=== PATIENT | male | born 1950 | race Hispanic/Latino ===

== ENCOUNTER 2017-11-08 12:40 | Emergency (ER) | payer MEDICARE ==
[2017-11-08 13:18] LABS: Basophils % (Auto) 0.7 % (0.0-1.8); Eosinophils % (Auto) 2.5 % (0.0-4.3); Hematocrit 52.3 % (35.5-45.6); Hemoglobin 17.4 gm/dl (11.8-15.2); Mean Corpuscular HGB Conc 33 % (32-34); Mean Corpuscular Hemoglobin 31 pg (28-32); Mean Corpuscular Volume 93 fl (84-94); Platelet Count 228 K/mm3 (140-440); Red Cell Distribution Width 14.7 % (13.2-15.2); White Blood Count 10.6 K/mm3 (4.5-11.0)
[2017-11-08 13:35] LABS: Calcium 9.5 mg/dL (8.4-10.2); Chloride 104.2 mmol/L (98-107); Potassium 4.5 mmol/L (3.6-5.0)
[2017-11-08 14:20] LABS: Urine Drugs of Abuse Note Disclamer
[2017-11-08 14:29] LABS: Bilirubin,Urine NEG (Negative); Blood,Urine NEG (Negative); Ketones,Urine NEG (Negative); Leukocyte Esterase,Urine NEG (Negative); Mucus,Urine 2+ /HPF; Nitrite,Urine NEG (Negative); Protein,Urine <15 mg/dL mg/dL (Negative); Urobilinogen,Urine < 2.0 mg/dL (<2.0)
[2017-11-08] MEDS ORDERED: HALDOL IM PRN (14:33)
[2017-11-08] MEDS ORDERED: ATIVAN IM PRN (14:33)
--- NOTE | 2017-11-08 14:36 | Emergency Department Report ---
ED Psych HPI - General Chief Complaint: Psych Stated Complaint: SUICIDAL THOUGHTS Time Seen by Provider: 11/08/17 13:09 Source: patient Mode of arrival: Ambulatory Limitations: No Limitations - History of Present Illness Initial Comments: This is a 67-year-old male with a past medical history of hypertension. The patient presents to the ER with a complaint of suicidality and wanting to overdose. He reports that he has a plan to get a bunch of pills together and overdose. He reports that he is not attempted over dose as of yet. His symptoms are constant, they do not radiate anywhere, they do not have exacerbating or relieving factors. The patient denies headache, neck pain, chest pain, abdominal pain, shortness of breath, irritative and obstructive urinary symptoms, and hallucinations. MD Complaint: suicidal ideation, feels depressed -: Gradual Associated Psychiatric Symptoms: suicidal ideation History of same: Yes Quality: constant Improves With: none Worsens With: none Treatments Prior to Arrival: none If Self Harm: admits thoughts of, has plan - Related Data Home Medications Medication Instructions Recorded Confirmed Last Taken Doxepin [SINEquan] 10 mg PO QHS 11/08/17 11/08/17 Unknown FLUoxetine HCL [PROzac] 40 mg PO QDAY 11/08/17 11/08/17 Unknown Lansoprazole [Prevacid] 15 mg PO QDAY 11/08/17 11/08/17 Unknown Lisinopril [Zestril TAB] 40 mg PO QDAY 11/08/17 11/08/17 Unknown Multivitamin [Multiple Vitamins] 1 each PO QDAY 11/08/17 11/08/17 Unknown amLODIPine [Norvasc] 10 mg PO DAILY 11/08/17 11/08/17 Unknown busPIRone [Buspar] 5 mg PO TID 11/08/17 11/08/17 Unknown Allergies Allergy/AdvReac Type Severity Reaction Status Date / Time No Known Allergies Allergy Unverified 11/08/17 12:51 ED Review of Systems ROS: Stated complaint: SUICIDAL THOUGHTS Other details as noted in HPI Constitutional: denies: malaise Eyes: denies: vision change ENT: denies: epistaxis Respiratory: denies: cough Cardiovascular: denies: chest pain Gastrointestinal: denies: abdominal pain Genitourinary: denies: dysuria Musculoskeletal: as per HPI Skin: as per HPI Neurological: as per HPI Psychiatric: depression, suicidal thoughts ED Past Medical Hx - Past Medical History Previous Medical History?: Yes Hx Hypertension: Yes Hx Psychiatric Treatment: Yes (PTSD, Major depression) - Surgical History Past Surgical History?: No - Social History Smoking Status: Current Every Day Smoker Substance Use Type: Alcohol, Marijuana - Medications Home Medications: Home Medications Medication Instructions Recorded Confirmed Last Taken Type Doxepin [SINEquan] 10 mg PO QHS 11/08/17 11/08/17 Unknown History FLUoxetine HCL [PROzac] 40 mg PO QDAY 11/08/17 11/08/17 Unknown History Lansoprazole [Prevacid] 15 mg PO QDAY 11/08/17 11/08/17 Unknown History Lisinopril [Zestril TAB] 40 mg PO QDAY 11/08/17 11/08/17 Unknown History Multivitamin [Multiple Vitamins] 1 each PO QDAY 11/08/17 11/08/17 Unknown History amLODIPine [Norvasc] 10 mg PO DAILY 11/08/17 11/08/17 Unknown History busPIRone [Buspar] 5 mg PO TID 11/08/17 11/08/17 Unknown History ED Physical Exam - General Limitations: No Limitations General appearance: alert, in no apparent distress - Head Head exam: Present: atraumatic, normocephalic - Eye Eye exam: Present: normal appearance, EOMI. Absent: nystagmus - ENT ENT exam: Present: normal exam, normal orophraynx, mucous membranes moist, normal external ear exam - Neck Neck exam: Present: normal inspection, full ROM - Respiratory Respiratory exam: Present: normal lung sounds bilaterally. Absent: respiratory distress - Cardiovascular Cardiovascular Exam: Present: regular rate, normal rhythm, normal heart sounds. Absent: systolic murmur, diastolic murmur, rubs, gallop - GI/Abdominal GI/Abdominal exam: Present: soft, normal bowel sounds. Absent: distended, tenderness, guarding, rebound, rigid, pulsatile mass - Rectal Rectal exam: Present: deferred - Extremities Exam Extremities exam: Present: normal inspection, full ROM. Absent: pedal edema, joint swelling, calf tenderness - Back Exam Back exam: Present: normal inspection, full ROM. Absent: tenderness, CVA tenderness (R), paraspinal tenderness, vertebral tenderness - Neurological Exam Neurological exam: Present: alert, oriented X3, CN II-XII intact, normal gait, other (Extraocular movements intact. Tongue midline. No facial droop. Facial sensation intact to light touch in the V1, V2, V3 distribution bilaterally. 5 and 5 strength in 4 extremities.. Sensation is intact to light touch in 4 extremities.). Absent: motor sensory deficit - Psychiatric Psychiatric exam: Present: suicidal ideation. Absent: homicidal ideation - Skin Skin exam: Present: warm, dry, intact, normal color. Absent: rash ED Course Vital Signs 11/08/17 11/08/17 11/08/17 12:51 13:29 14:57 Temperature 97.1 F L 98.7 F Pulse Rate 111 H 74 Respiratory 18 17 17 Rate Blood Pressure 159/103 Blood Pressure 133/91 [Left] O2 Sat by Pulse 93 93 Oximetry 11/08/17 11/08/17 15:04 15:21 Temperature Pulse Rate 74 74 Respiratory Rate Blood Pressure 133/91 133/91 Blood Pressure [Left] O2 Sat by Pulse Oximetry ED Medical Decision Making - Lab Data Result diagrams: 11/08/17 13:00 11/08/17 13:00 Vital Signs 11/08/17 11/08/17 12:51 13:29 Temperature 97.1 F L Pulse Rate 111 H Respiratory 18 17 Rate Blood Pressure 159/103 O2 Sat by Pulse 93 Oximetry Labs 11/08/17 11/08/17 11/08/17 13:00 13:00 13:00 WBC 10.6 RBC 5.60 H Hgb 17.4 H Hct 52.3 H MCV 93 MCH 31 MCHC 33 RDW 14.7 Plt Count 228 Lymph % (Auto) 13.7 [place] % (Auto) 5.4 Eos % (Auto) 2.5 Baso % (Auto) 0.7 Lymph # 1.5 Catron # 0.6 Eos # 0.3 Baso # 0.1 Seg Neutrophils % 77.7 H Seg Neutrophils # 8.2 H Sodium 144 Potassium 4.5 Chloride 104.2 Carbon Dioxide 24 Anion Gap 20 BUN 12 Creatinine 1.3 Estimated GFR 55 BUN/Creatinine Ratio 9 Glucose 99 Calcium 9.5 Urine Color Urine Turbidity Urine pH Ur Specific [place] Urine Protein Urine Glucose (UA) Urine Ketones Urine Blood Urine Nitrite Urine Bilirubin Urine Urobilinogen Ur Leukocyte Esterase Urine WBC (Auto) Urine RBC (Auto) U Epithel Cells (Auto) Urine Mucus Salicylates Acetaminophen Plasma/Serum Alcohol < 0.01 11/08/17 11/08/17 11/08/17 13:00 13:00 14:17 WBC RBC Hgb Hct MCV MCH MCHC RDW Plt Count Lymph % (Auto) [place] % (Auto) Eos % (Auto) Baso % (Auto) Lymph # [place] # Eos # Baso # Seg Neutrophils % Seg Neutrophils # Sodium Potassium Chloride Carbon Dioxide Anion Gap BUN Creatinine Estimated GFR BUN/Creatinine Ratio Glucose Calcium Urine Color Yellow Urine Turbidity Clear Urine pH 5.0 Ur Specific [place] 1.021 Urine Protein <15 mg/dl Urine Glucose (UA) Neg Urine Ketones Neg Urine Blood Neg Urine Nitrite Neg Urine Bilirubin Neg Urine Urobilinogen < 2.0 Ur Leukocyte Esterase Neg Urine WBC (Auto) 3.0 Urine RBC (Auto) 4.0 U Epithel Cells (Auto) < 1.0 Urine Mucus 2+ Salicylates < 0.3 L Acetaminophen < 15.0 Plasma/Serum Alcohol - Medical Decision Making Differential diagnosis, including but not limited to: Depression, mood disorder , suicidality, medical clearance for psychiatric placement Assessment and plan: 67-year-old male with depression, suicidality, plan to overdose. He is afebrile with reassuring vital signs; on my physical examination his tachycardia has resolved. He has hypertension, this is a chronic medical issue, and I would expect his blood pressure to be somewhat elevated given his age. We will continue his current outpatient medications, the patient is placed on a 1013, and at this point time, there does not appear to be any immediate medical contraindication to psychiatric admission, evaluation and consultation. The crisis team has been paged, the patient is suitable for inpatient psychiatric hospitalization at this time. His compartments are soft, he is not clinically intoxicated, therefore think rhabdomyolysis is very likely. Critical care attestation.: If time is entered above; I have spent that time in minutes in the direct care of this critically ill patient, excluding procedure time. ED Disposition Clinical Impression: Medical clearance for psychiatric admission Disposition: [id number] PSY HOSP/PSY UNIT Is pt being admited?: No Does the pt Need Aspirin: No Condition: Good Referrals: PRIMARY CARE, [Primary Care Provider] - 3-5 Days
[2017-11-08] MEDS ORDERED: NON-FORMULARY (Fluoxetine Hcl [Prozac] 40 MG) PO SCH (14:45)
[2017-11-08] MEDS ORDERED: PROzac PO SCH (14:45)
[2017-11-08] MEDS ORDERED: LANSOPRAZOLE 15 MG PO SCH (14:45)
[2017-11-08] MEDS ORDERED: PROTONIX PO SCH (14:45)
[2017-11-08 14:58] VITALS: BP 133/91
[2017-11-08] MEDS ORDERED: ZESTRIL PO SCH (15:00)
[2017-11-08] MEDS ORDERED: NORVASC PO SCH (15:00)
[2017-11-08] MEDS ORDERED: ZESTRIL ONE (15:22)
[2017-11-08] MEDS ORDERED: BUSPAR PO SCH (20:00)
[2017-11-08] MEDS ORDERED: SINEquan PO SCH (22:00)
[2017-11-09] MEDS ORDERED: NON-FORMULARY (Multivitamin [Multiple Vitamins] 1 EACH) PO SCH (10:00)
[2017-11-09] MEDS ORDERED: THERAGRAN Tab PO SCH (10:00)
== END 2017-11-08 16:15 ==
LOC: ED 12:40
DX: F32.9 Major depressive disorder, single episode, unspecified (principal); R45.851 Suicidal ideations; I10 Essential (primary) hypertension; F43.10 Post-traumatic stress disorder, unspecified; F17.200 Nicotine dependence, unspecified, uncomplicated; F12.10 Cannabis abuse, uncomplicated
CPT/HCPCS: 36415; 80048; 80307; 81001; 85025; 99285; G0480; 80320